=== PATIENT | female | born 1965 | race Two or more races ===

== ENCOUNTER 2024-03-18 09:32 | Emergency (ER) | payer OTHER ==
[~2024-03-18] VITALS: Ht 175.3 cm; Wt 117.9 kg
[~2024-03-18 09:32] MED LIST: AVELOX ABC PAC400 MG PO; DULERA 200 MCG/13 GM IH; PROVENTIL0.5 ML/2.5 IH; SINGULAIR10 MG PO; SORBUTUSS LIQU473 ML PO
[2024-03-18] MEDS ORDERED: TELMISARTAN-HC1 EAC1 PO (10:10)
[2024-03-18] MEDS ORDERED: METHYLPREDNISOLONE SOD SUCC 125 MG VIAL IV STA (10:21)
[2024-03-18] MEDS ORDERED: 0.9 % SODIUM CHLORIDE 1,000 ML IV STA (10:21)
[2024-03-18] MEDS ORDERED: BUDESONIDE 0.5 MG/2 ML AMPUL.NEB IH STA (10:22)
[2024-03-18] MEDS ORDERED: levoFLOXacin IN DEXTROSE 5 % 5 MG/ML PIGGYBAG IV STA (10:22)
[2024-03-18] MEDS ORDERED: LEVALBUTEROL HCL 1.25 MG/3 ML SOLUTION IH SCH (10:30)
[2024-03-18 11:36] LABS: CALCIUM 9.4 mg/dL (8.5-10.1); CREATININE SERUM 1.26 mg/dL (0.55-1.02); GFR 43.17; POTASSIUM 4.58 mEq/L (3.5-5.1)
[2024-03-18 13:37] LABS: HEMATOCRIT 40.6 % (36.0-45.00); HEMOGLOBIN 13.3 g/dL (12.0-15.00); MEAN CELL VOLUME 87.9 fL (80.00-100.00); MEAN CORPUSCULAR HEMOGLOBIN 28.8 pg (27.00-32.0); MEAN CORPUSCULAR HGB CONC 32.8 g/dl (32.0-36.0); PLATELET COUNT 243 K/uL (150-450); RED BLOOD COUNT 4.62 M/uL (4.00-6.00); RED CELL DISTRIBUTION WIDTH 13.3 % (11.5-14.5)
[2024-03-18] MEDS ORDERED: KETOROLAC TROMETHAMINE 30 MG VIAL IM STA (14:09)
[2024-03-18 14:32] LABS: ABG PO2 88.1 mmHg (80-100); ABG pCO2 37.4 mmHg (35-45); BASE EXCESS -1.1 mmol/l; BICARBONATE 23.2 mmol/l (23-25); SaO2 96.8 %; Tco2 24.3 mmol/l; allen test SATISFACTORY; o2 21 %; puncture site RADIAL RIGHT
== END 2024-03-18 14:55 | disposition home or self-care (01) ==
LOC: ER 09:34
PROVIDERS: General Practice
DX: J45.901 Unspecified asthma with (acute) exacerbation (principal); Z20.822 Contact with and (suspected) exposure to COVID-19